=== PATIENT | female | born 1945 | race Hispanic/Latino ===

== ENCOUNTER 2021-09-30 08:48 | Inpatient (IN) | payer OTHER ==
[2021-09-27 10:40] LABS: BASOPHILS % (AUTO) 0.8 % (0.0-5.0); EOSINOPHILS % (AUTO) 1.8 % (0.0-8.0); HEMATOCRIT 41.4 % (36-48); LYMPHOCYTES % (AUTO) 14.4 % (21.0-51.0); MEAN CORPUSCULAR HEMOGLOBIN 28.5 pg (27.0-33.0); MEAN CORPUSCULAR HGB CONC 29.7 g/dL (32.0-36.0); MEAN CORPUSCULAR VOLUME 95.8 fL (79-99); MONOCYTES % (AUTO) 5.7 % (3.0-13.0); NEUTROPHILS % (AUTO) 76.7 % (40.0-77.0); PLATELET COUNT (AUTO) 185 K/uL (130-400); RED BLOOD CELL COUNT(AUTO) 4.32 MIL/uL (4.00-5.50); RED CELL DISTRIBUTION WIDTH 16.4 % (11.0-15.5); WHITE BLOOD COUNT (AUTO) 12.6 K/uL (4.8-10.8)
[2021-09-27 10:51] LABS: CREATININE 6.2 mg/dL (0.5-1.5)
[2021-09-27 11:19] LABS: INR 0.99 (0.85-1.15); PROTHROMBIN TIME 10.8 SEC (9.6-11.6)
[2021-09-27 11:21] LABS: PARTIAL THROMBOPLASTIN TIME 23.7 SEC (26.3-35.5)
[~2021-09-30] VITALS: Ht 160 cm; Wt 89.0 kg
[2021-09-30] VITALS (22 sets, daily range): BP systolic 113–159; BP diastolic 42–61
[~2021-09-30 08:48] MED LIST: 0.9%NACL 1000ML 1,000 ML IV SCH; ALBU18HF7 IH; ALBU8.5H8 IH; AMLO-258 PO; ASPI-1443 PO; ATOR40TA71 PO; Auryxia PO; CARV6.25 PO; CEFAZOLIN SODIUM 1 GM VIAL IVP ONE; DICY10CA13 PO; FOLI0.8C PO; FOLI0.8T43 PO; FURO40TA5 PO; GABA-529 PO; INSLAN SQ; IPRAHFA IH; LOSA25TA41 PO; METO5TAB2 PO; NITR0.4T50 SL; ONDA4TAB4 PO; PANT40TA PO; TRAM50TA4 PO
[2021-09-30] MEDS ORDERED: 0.9% NACL 500ML IV.SOLN 500 ML IV ONE (10:08)
[2021-09-30] MEDS ORDERED: CEFAZOLIN SODIUM 1 GM VIAL ONE (10:17)
[2021-09-30] MEDS ORDERED: SUCCINYLCHOLINE 200MG/10ML SYR ONE (12:42)
[2021-09-30] MEDS ORDERED: LIDOCAINE PF 100MG/5ML (2%) SYRINGE 5ML ONE (12:42)
[2021-09-30] MEDS ORDERED: ROCURONIUM 10MG/1ML SYR 10 MG/ML ML ONE (12:43)
[2021-09-30] MEDS ORDERED: PROPOFOL 10 MG/ML 20ML VIAL IV ONE (12:43)
[2021-09-30] MEDS ORDERED: FENTANYL CITRATE PF 50 MCG/1 ML 2ML VIAL ONE (12:44)
[2021-09-30] MEDS ORDERED: EPHEDRINE SULFATE 50 MG/ML AMPULE ONE (13:14)
[2021-09-30] MEDS ORDERED: BUPIVACAINE/PF 0.25% 10ML VIAL IJ ONE (13:34)
[2021-09-30] MEDS ORDERED: LIDOCAINE HCL 1% 20 ML VIAL ONE (13:34)
[2021-09-30] MEDS ORDERED: LABETALOL 20MG VIAL IV ONE (14:23)
[2021-09-30] MEDS ORDERED: GLYCOPYRROLATE 1 MG/5 ML SYRINGE ONE (15:28)
[2021-09-30] MEDS ORDERED: NEOSTIGMINE 5MG/5ML SYR IV ONE (15:29)
[2021-09-30] MEDS ORDERED: MEPERIDINE-PF 25 MG/ML SYG ONE ×2 (16:00→16:14)
[2021-09-30] MEDS ORDERED: MORPHINE 2 MG SYG IVP PRN (20:30)
[2021-09-30] MEDS ORDERED: ONDANSETRON 4MG INJ IVP PRN (20:30)
[2021-09-30] MEDS ORDERED: ACETAMINOPHEN 325 MG TAB PO PRN (22:00)
[2021-09-30] MEDS ORDERED: MORPHINE 2 MG SYG IV PRN (22:00)
[2021-09-30] MEDS ORDERED: NITROGLYCERIN 0.4 MG SL TAB SL PRN (22:00)
[2021-09-30] MEDS ORDERED: ALBUTEROL INHALER 90MCG/INH IH SCH (22:00)
[2021-10-01] VITALS (7 sets, daily range): BP systolic 121–144; BP diastolic 38–54
[2021-10-01] MEDS: MORPHINE 2 MG SYG IV PRN ×2 (00:18→06:47)
[2021-10-01 04:24] LABS: BASOPHILS % (AUTO) 0.5 % (0.0-5.0); EOSINOPHILS % (AUTO) 0.2 % (0.0-8.0); LYMPHOCYTES % (AUTO) 8.9 % (21.0-51.0); MEAN CORPUSCULAR HEMOGLOBIN 28.3 pg (27.0-33.0); MEAN CORPUSCULAR HGB CONC 29.5 g/dL (32.0-36.0); MEAN CORPUSCULAR VOLUME 95.8 fL (79-99); MONOCYTES % (AUTO) 4.9 % (3.0-13.0); NEUTROPHILS % (AUTO) 84.9 % (40.0-77.0); PLATELET COUNT (AUTO) 180 K/uL (130-400); RED BLOOD CELL COUNT(AUTO) 4.07 MIL/uL (4.00-5.50); RED CELL DISTRIBUTION WIDTH 16.7 % (11.0-15.5); WHITE BLOOD COUNT (AUTO) 19.4 K/uL (4.8-10.8)
[2021-10-01 04:43] LABS: CREATININE 5.9 mg/dL (0.5-1.5); MAGNESIUM 1.6 mg/dL (1.80-2.40); PHOSPHORUS 5.2 mg/dL (2.5-4.9); POTASSIUM 4.5 mmol/L (3.5-5.1)
[2021-10-01] MEDS: INSULIN HUMULIN R 100 UNIT/ML 3ML SQ SCH ×4 (06:31→21:06)
[2021-10-01] MEDS: IPRATROPIUM 0.5 MG/2.5 ML INH IH SCH ×2 (08:23→18:22)
[2021-10-01] MEDS ORDERED: ALBUTEROL INHALER 90MCG/INH IH SCH ×2 (09:00→09:30)
[2021-10-01 09:03] LABS: HEMOGLOBIN A1C 7.9 % (4.0-6.0)
[2021-10-01] MEDS: FAMOTIDINE 20MG TAB PO SCH (11:05)
[2021-10-01] MEDS: FOLIC ACID 1 MG TABLET PO SCH (11:05)
[2021-10-01] MEDS: FUROSEMIDE 40 MG TABLET PO SCH ×2 (11:06→21:05)
[2021-10-01] MEDS: GABAPENTIN 100 MG CAPSULE PO SCH ×2 (11:06→21:05)
[2021-10-01] MEDS: CARVEDILOL 6.25 MG TABLET PO SCH (11:07)
[2021-10-01] MEDS: ATORVASTATIN 40 MG TABLET PO SCH (11:07)
[2021-10-01] MEDS: HYDROMORPHONE 0.5 MG SYG (0.5MG/0.5ML) IVP PRN ×2 (11:26→19:50)
[2021-10-01] MEDS ORDERED: PHARMACY COMMUNICATION MISC SCH (11:30)
[2021-10-01] MEDS: ZOSYN 3.375GM+NS 50ML 50 ML IV SCH (12:25)
[2021-10-01] MEDS: ONDANSETRON 4MG INJ IV PRN (13:00)
[2021-10-01] MEDS ORDERED: MAGNESIUM 4GM PREMIX 100ML 100 ML IV ONE (19:00)
[2021-10-01] MEDS: ALBUTEROL INHALER 90MCG/INH IH SCH (21:00)
[2021-10-02] VITALS (21 sets, daily range): BP systolic 96–157; BP diastolic 22–100
[2021-10-02] MEDS: ZOSYN 3.375GM+NS 50ML 50 ML IV SCH ×3 (00:07→23:55)
[2021-10-02 05:04] LABS: HEMATOCRIT 33.8 % (36-48); MEAN CORPUSCULAR HEMOGLOBIN 28.9 pg (27.0-33.0); MEAN CORPUSCULAR HGB CONC 30.5 g/dL (32.0-36.0); MEAN CORPUSCULAR VOLUME 94.9 fL (79-99); RED BLOOD CELL COUNT(AUTO) 3.56 MIL/uL (4.00-5.50); RED CELL DISTRIBUTION WIDTH 16.9 % (11.0-15.5); WHITE BLOOD COUNT (AUTO) 19.3 K/uL (4.8-10.8)
[2021-10-02] MEDS: INSULIN HUMULIN R 100 UNIT/ML 3ML SQ SCH ×3 (06:28→21:14)
[2021-10-02] MEDS: IPRATROPIUM 0.5 MG/2.5 ML INH IH SCH ×3 (08:02→21:08)
[2021-10-02] MEDS: FUROSEMIDE 40 MG TABLET PO SCH ×2 (09:00→21:13)
[2021-10-02] MEDS: ATORVASTATIN 40 MG TABLET PO SCH (09:00)
[2021-10-02] MEDS: CARVEDILOL 6.25 MG TABLET PO SCH (09:00)
[2021-10-02] MEDS: ALBUTEROL INHALER 90MCG/INH IH SCH ×2 (09:00→20:41)
[2021-10-02] MEDS: HYDROMORPHONE 0.5 MG SYG (0.5MG/0.5ML) IVP PRN (10:09)
[2021-10-02] MEDS: FOLIC ACID 1 MG TABLET PO SCH (10:10)
[2021-10-02] MEDS: GABAPENTIN 100 MG CAPSULE PO SCH ×2 (10:10→21:13)
[2021-10-02] MEDS: FAMOTIDINE 20MG TAB PO SCH (10:10)
[2021-10-02 14:44] LABS: CREATININE 7.6 mg/dL (0.5-1.5); POTASSIUM 4.8 mmol/L (3.5-5.1)
[2021-10-02] MEDS ORDERED: MAGNESIUM 4GM PREMIX 100ML 100 ML IV PRN (17:30)
[2021-10-02] MEDS ORDERED: INSULIN GLARGINE 100 UNITS/ML 10 ML VIAL SQ SCH ×2 (21:00)
[2021-10-02] MEDS: ONDANSETRON 4MG INJ IV PRN (23:05)
[2021-10-03] MEDS: HYDROMORPHONE 0.5 MG SYG (0.5MG/0.5ML) IVP PRN ×2 (00:55→13:07)
[2021-10-03 03:44] VITALS: BP 112/45
[2021-10-03 06:25] LABS: BASOPHILS % (AUTO) 0.4 % (0.0-5.0); HEMATOCRIT 34.4 % (36-48); LYMPHOCYTES % (AUTO) 6.4 % (21.0-51.0); MEAN CORPUSCULAR HEMOGLOBIN 28.4 pg (27.0-33.0); MEAN CORPUSCULAR HGB CONC 29.7 g/dL (32.0-36.0); MEAN CORPUSCULAR VOLUME 95.8 fL (79-99); MONOCYTES % (AUTO) 3.4 % (3.0-13.0); NEUTROPHILS % (AUTO) 88.3 % (40.0-77.0); PLATELET COUNT (AUTO) 160 K/uL (130-400); RED BLOOD CELL COUNT(AUTO) 3.59 MIL/uL (4.00-5.50); RED CELL DISTRIBUTION WIDTH 16.8 % (11.0-15.5); WHITE BLOOD COUNT (AUTO) 22.1 K/uL (4.8-10.8)
[2021-10-03 06:27] LABS: CREATININE 5.1 mg/dL (0.5-1.5); POTASSIUM 4.4 mmol/L (3.5-5.1)
[2021-10-03] MEDS: INSULIN HUMULIN R 100 UNIT/ML 3ML SQ SCH ×4 (06:32→21:00)
[2021-10-03 07:35] VITALS: BP 108/38
[2021-10-03] MEDS: FUROSEMIDE 40 MG TABLET PO SCH ×2 (08:53→21:16)
[2021-10-03] MEDS: ATORVASTATIN 40 MG TABLET PO SCH (08:53)
[2021-10-03] MEDS: GABAPENTIN 100 MG CAPSULE PO SCH ×2 (08:53→21:15)
[2021-10-03] MEDS: FAMOTIDINE 20MG TAB PO SCH (08:53)
[2021-10-03] MEDS: FOLIC ACID 1 MG TABLET PO SCH (08:53)
[2021-10-03] MEDS: CARVEDILOL 6.25 MG TABLET PO SCH ×2 (08:54→09:00)
[2021-10-03] MEDS: ALBUTEROL INHALER 90MCG/INH IH SCH (09:02)
[2021-10-03 11:35] VITALS: BP 114/30
[2021-10-03] MEDS: ZOSYN 3.375GM+NS 50ML 50 ML IV SCH (12:08)
[2021-10-03 15:30] VITALS: BP 123/24
[2021-10-03 16:03] LABS: APPEARANCE,URINE Cloudy (CLEAR); BILIRUBIN,URINE Negative (NEGATIVE); COLOR,URINE Dark Yellow (YELLOW); GLUCOSE, URINE (UA) TRACE mg/dL (NEGATIVE); KETONES,URINE Trace mg/dL (NEGATIVE); LEUKOCYTE ESTERASE ,URINE Negative (NEGATIVE); NITRATE,URINE Negative (NEGATIVE); OCCULT BLOOD,URINE Negative (NEGATIVE); PH,URINE 5.5 (5.0-8.0); PROTEIN,URINE 300 mg/dL (NEGATIVE); UROBILINOGEN,URINE 0.2 mg/dL (0.2-1.0)
[2021-10-03 16:09] LABS: BACTERIA,URINE Few /HPF (None Seen); SQUAMOUS EPITHELIAL CELL,UR Moderate /HPF (0-2)
[2021-10-03 16:10] LABS: AMORPHOUS SEDIMENT,UR Few /LPF (None Seen); MUCUS,URINE Few LPF (None Seen)
[2021-10-03] MEDS ORDERED: KETOROLAC 15MG/ML VIAL (15MG/ML) IV ONE (18:00)
[2021-10-03] MEDS: IPRATROPIUM 0.5 MG/2.5 ML INH IH SCH (18:54)
[2021-10-03 20:13] VITALS: BP 114/40
[2021-10-03] MEDS: TRAMADOL HCL 50 MG TABLET PO PRN (21:16)
[2021-10-03] MEDS: MEROPENEM 500 MG VIAL IV SCH (21:16)
[2021-10-03 23:53] VITALS: BP 117/37
[2021-10-04 04:06] VITALS: BP 141/40
[2021-10-04 06:12] LABS: BASOPHILS % (AUTO) 0.5 % (0.0-5.0); EOSINOPHILS % (AUTO) 2.5 % (0.0-8.0); HEMATOCRIT 32.8 % (36-48); LYMPHOCYTES % (AUTO) 11.2 % (21.0-51.0); MEAN CORPUSCULAR HEMOGLOBIN 28.7 pg (27.0-33.0); MEAN CORPUSCULAR HGB CONC 30.8 g/dL (32.0-36.0); MEAN CORPUSCULAR VOLUME 93.2 fL (79-99); MONOCYTES % (AUTO) 5.4 % (3.0-13.0); NEUTROPHILS % (AUTO) 79.7 % (40.0-77.0); PLATELET COUNT (AUTO) 207 K/uL (130-400); RED BLOOD CELL COUNT(AUTO) 3.52 MIL/uL (4.00-5.50); WHITE BLOOD COUNT (AUTO) 15.1 K/uL (4.8-10.8)
[2021-10-04 06:32] LABS: CREATININE 6.9 mg/dL (0.5-1.5); POTASSIUM 4.3 mmol/L (3.5-5.1)
[2021-10-04] MEDS: INSULIN HUMULIN R 100 UNIT/ML 3ML SQ SCH ×4 (06:42→20:43)
[2021-10-04] MEDS: IPRATROPIUM 0.5 MG/2.5 ML INH IH SCH ×2 (07:02→19:00)
[2021-10-04 07:47] VITALS: BP 137/43
[2021-10-04] MEDS: FAMOTIDINE 20MG TAB PO SCH (09:00)
[2021-10-04] MEDS: FUROSEMIDE 40 MG TABLET PO SCH ×2 (09:00→20:43)
[2021-10-04] MEDS: ATORVASTATIN 40 MG TABLET PO SCH (09:00)
[2021-10-04] MEDS: FOLIC ACID 1 MG TABLET PO SCH (09:00)
[2021-10-04] MEDS: GABAPENTIN 100 MG CAPSULE PO SCH ×2 (09:00→20:43)
[2021-10-04] MEDS: CARVEDILOL 6.25 MG TABLET PO SCH (09:00)
[2021-10-04 10:50] VITALS: BP 116/42
[2021-10-04] MEDS: HYDROMORPHONE 0.5 MG SYG (0.5MG/0.5ML) IVP PRN (14:04)
[2021-10-04 16:00] VITALS: BP 129/54
[2021-10-04] MEDS: MEROPENEM 500 MG VIAL IV SCH (18:27)
[2021-10-04 20:00] VITALS: BP 135/59
[2021-10-04] MEDS: TRAMADOL HCL 50 MG TABLET PO PRN (20:53)
[2021-10-05] VITALS (20 sets, daily range): BP systolic 86–155; BP diastolic 37–68
[2021-10-05 06:12] LABS: HEPATITIS Bs ANTIGEN SCREEN P Negative (Negative)
[2021-10-05] MEDS: TRAMADOL HCL 50 MG TABLET PO PRN (07:17)
[2021-10-05] MEDS: INSULIN HUMULIN R 100 UNIT/ML 3ML SQ SCH ×3 (07:30→16:55)
[2021-10-05] MEDS: GABAPENTIN 100 MG CAPSULE PO SCH ×2 (09:30→22:35)
[2021-10-05] MEDS: ATORVASTATIN 40 MG TABLET PO SCH (09:30)
[2021-10-05] MEDS: FAMOTIDINE 20MG TAB PO SCH (09:30)
[2021-10-05] MEDS: FUROSEMIDE 40 MG TABLET PO SCH ×2 (09:30→22:35)
[2021-10-05] MEDS: CARVEDILOL 6.25 MG TABLET PO SCH (09:30)
[2021-10-05] MEDS: FOLIC ACID 1 MG TABLET PO SCH (09:30)
[2021-10-05] MEDS ORDERED: LACTULOSE 20 GM/30 ML UDCUP PO PRN (10:00)
[2021-10-05] MEDS: IPRATROPIUM 0.5 MG/2.5 ML INH IH SCH ×2 (11:17→18:54)
[2021-10-06] VITALS: BP 156/51
[2021-10-06] MEDS: ALBUTEROL INHALER 90MCG/INH IH SCH (00:48)
[2021-10-06] MEDS: INSULIN HUMULIN R 100 UNIT/ML 3ML SQ SCH ×4 (00:56→16:30)
[2021-10-06] MEDS: HYDROMORPHONE 0.5 MG SYG (0.5MG/0.5ML) IVP PRN (01:09)
[2021-10-06 04:00] VITALS: BP 136/55
[2021-10-06] MEDS: IPRATROPIUM 0.5 MG/2.5 ML INH IH SCH (06:50)
[2021-10-06 07:05] VITALS: BP 129/72
[2021-10-06] MEDS: ATORVASTATIN 40 MG TABLET PO SCH (08:39)
[2021-10-06] MEDS: GABAPENTIN 100 MG CAPSULE PO SCH (08:39)
[2021-10-06] MEDS: FOLIC ACID 1 MG TABLET PO SCH (08:39)
[2021-10-06] MEDS: FUROSEMIDE 40 MG TABLET PO SCH (08:39)
[2021-10-06] MEDS: CARVEDILOL 6.25 MG TABLET PO SCH (08:40)
[2021-10-06] MEDS: FAMOTIDINE 20MG TAB PO SCH (08:40)
[2021-10-06 11:05] VITALS: BP 120/39
[2021-10-06 15:05] VITALS: BP 101/80
[2021-10-06 15:38] LABS: HEMATOCRIT 32.4 % (36-48); MEAN CORPUSCULAR HEMOGLOBIN 28.6 pg (27.0-33.0); MEAN CORPUSCULAR HGB CONC 30.2 g/dL (32.0-36.0); MEAN CORPUSCULAR VOLUME 94.5 fL (79-99); PLATELET COUNT (AUTO) 196 K/uL (130-400); RED BLOOD CELL COUNT(AUTO) 3.43 MIL/uL (4.00-5.50); RED CELL DISTRIBUTION WIDTH 16.3 % (11.0-15.5); WHITE BLOOD COUNT (AUTO) 10.7 K/uL (4.8-10.8)
== END 2021-10-06 16:50 | disposition home or self-care (01) | DRG 353 ==
LOC: DAH 08:48 → OBSVTOIN 08:49 → 3BH 08:49 → DAH 08:49
PROVIDERS: ADMIT Student in an Organized Health Care Education/Training Program; ATTEND Student in an Organized Health Care Education/Training Program
PROC: 0WUF0JZ Supplement Abdominal Wall with Synthetic Substitute, Open Approach (ICD-10-PCS; principal; 2021-09-30 13:24)
PROC: 5A1D70Z Performance of Urinary Filtration, Intermittent, Less than 6 Hours Per Day (ICD-10-PCS; 2021-10-01)
PROC: 5A1D70Z Performance of Urinary Filtration, Intermittent, Less than 6 Hours Per Day (ICD-10-PCS; 2021-10-02)
PROC: 0D9670Z Drainage of Stomach with Drainage Device, Via Natural or Artificial Opening (ICD-10-PCS; 2021-10-03)
PROC: 5A1D70Z Performance of Urinary Filtration, Intermittent, Less than 6 Hours Per Day (ICD-10-PCS; 2021-10-05)
DX: K43.0 Incisional hernia with obstruction, without gangrene (principal); N18.6 End stage renal disease; J96.11 Chronic respiratory failure with hypoxia; K56.7 Ileus, unspecified; E87.1 Hypo-osmolality and hyponatremia; N17.9 Acute kidney failure, unspecified; I12.0 Hypertensive chronic kidney disease with stage 5 chronic kidney disease or end stage renal disease; K91.89 Other postprocedural complications and disorders of digestive system; Z20.822 Contact with and (suspected) exposure to COVID-19; E11.22 Type 2 diabetes mellitus with diabetic chronic kidney disease; J44.9 Chronic obstructive pulmonary disease, unspecified; M06.9 Rheumatoid arthritis, unspecified; E78.5 Hyperlipidemia, unspecified; E66.9 Obesity, unspecified; Z68.34 Body mass index [BMI] 34.0-34.9, adult; Z99.2 Dependence on renal dialysis; Z87.891 Personal history of nicotine dependence; Z83.3 Family history of diabetes mellitus
CPT/HCPCS: 36415; 71045; 74018; 80048; 81001; 82948; 83036; 83735; 84100; 84132; 84145; 85025; 85027; 85610; 85730; 86704; 86706; 87088; 87340; 87635; 88302; 90935; 93005; 94640; 97039; A4606; C9803; G0378; J0330; J0690; J1170; J1815; J1885; J2001; J2175; J2185; J2405; J2543; J2704; J2710; J3010; J3475; J3490; J7040